=== PATIENT | female | born 1970 | race Caucasian/White ===

== ENCOUNTER 2016-10-04 18:45 | Emergency (ER) | payer BC, OTHER ==
[~2016-10-04] VITALS: Ht 160 cm; Wt 67.1 kg
[2016-10-04 18:48] VITALS: BP 152/100; PULSE 102; RESP 18; TEMP 98.3; O2SAT 97
--- NOTE | 2016-10-04 18:50 | NUR ---
Pt triaged and returned to waiting room on stable condition, awaiting for MSE
--- NOTE | 2016-10-04 21:00 | NUR ---
Placed in room 08 . Placed on cardiac exercise specialist, blood pressure machine and pulse oximeter. To gown for exam. Side rails up. Report given to TORRES Ruggiero.
--- NOTE | 2016-10-04 21:10 | NUR ---
Patient AAO x4, sitting in bed, at bedside, c/o Left breast pain 01/29 x 1 week, patient has history of breast pain x 1 year and is scheduled to have a mammogram tomorrow, patient reports pain is concurrent with her mentrual cycle and this week has increased above normal with c/o dizziness and "seeing spots". Denies chest pain, denies N/V/D, Denies shortness of breath. No acute distress noted. Will continue to monitor.
[2016-10-04] MEDS ORDERED: KETOROLAC TROMETHAMINE 60 MG/2 ML VIAL IM ONE (21:30)
--- NOTE | 2016-10-04 21:30 | NUR ---
PENELOPE LOUISE at bedside examining patient.
[2016-10-04] MEDS ORDERED: LORazepam 1 MG TABLET PO ONE (21:45)
[2016-10-04 22:42] VITALS: BP 135/85; PULSE 85; RESP 18; TEMP 98.3; O2SAT 97
--- NOTE | 2016-10-04 22:42 | NUR ---
Patient given written and verbal discharge instructions and verbalizes understanding. ER MD discussed with patient the results and treatment provided. Patient in stable condition. ID arm band removed. Rx of motrin given. Patient educated on pain management and to follow up with PMD. Pain Scale 0/10 . Opportunity for questions provided and answered.
== END 2016-10-04 22:42 | disposition home or self-care (01) ==
LOC: SED 18:45
DX: R07.89 Other chest pain (principal); I10 Essential (primary) hypertension
CPT/HCPCS: 36415; 81025; 84484; 93005; 96372; 99285; J1885

== ENCOUNTER 2022-03-18 20:11 | Emergency (ER) | payer BC, OTHER ==
[~2022-03-18] VITALS: Ht 160 cm; Wt 72.6 kg
[2022-03-18 20:37] VITALS: BP_SYST 125
--- NOTE | 2022-03-18 20:41 | NUR ---
PT BIB BLS FOR ANXIETY. PT STATES SHE HAD ARGUMENT WITH PARTNER AND WANTED TO LEAVE. PT STATES SHE FEEL SAFE. PT DENIES CP, SOB. STATES SHE VOMITED PRIOR TO ARRIVAL.
--- NOTE | 2022-03-18 20:50 | NUR ---
Patient triaged by Radha RN in the [address] and placed in waiting room. VSS and patient appears in no acute distress at this time.awaiting available bed, and MD notified of need for MSE.
== END 2022-03-18 23:00 | disposition left against medical advice (07) ==
LOC: SED 20:11
DX: F41.9 Anxiety disorder, unspecified (principal); Z53.21 Procedure and treatment not carried out due to patient leaving prior to being seen by health care provider